=== PATIENT | male | born 1990 | race Caucasian/White ===

== ENCOUNTER 2023-11-15 02:24 | Emergency (ER) | payer OTHER, SELFPAY ==
[2023-11-15 02:26] VITALS: BP 166/104; PULSE 75; RESP 20; TEMP 36.6; O2SAT 100; BMI 24.4
--- NOTE | 2023-11-15 02:35 | PC.NURSE ---
in room talking with patient at this time.
--- NOTE | 2023-11-15 02:37 | CT_ITS ---
PROCEDURE INFORMATION: Exam: CT Abdomen And Pelvis With Contrast Exam date and time: 11/15/2023 3:05 AM Age: 33 years old Clinical indication: Abdominal pain; Localized; Right lower quadrant (rlq); Prior surgery; Surgery date: 6+ months; Surgery type: Appendix; Additional info: Rlq pain TECHNIQUE: Imaging protocol: Computed tomography of the abdomen and pelvis with contrast. Radiation optimization: All CT scans at this facility use at least one of these dose optimization techniques: automated exposure control; mA and/or kV adjustment per patient size (includes targeted exams where dose is matched to clinical indication); or iterative reconstruction. Contrast material: ISOVUE; Contrast volume: 75 ml; Contrast route: IV; COMPARISON: No relevant prior studies available. FINDINGS: Lungs: Lung bases are clear as visualized. Heart: Base of heart is unremarkable as visualized. Liver: Normal. No mass. Gallbladder and bile ducts: Normal. No calcified stones. No ductal dilation. Pancreas: Normal. No ductal dilation. Spleen: Normal. No splenomegaly. Adrenal glands: Normal. No mass. Kidneys and ureters: There is slight decrease in cortical enhancement of the right kidney diffusely. Right kidney additionally demonstrates moderate hydronephrosis. The right renal pelvis is dilated. There is distal [id number] ureterectasis with surrounding inflammatory change to the level of the ureterovesicular junction. Just proximal to the right ureterovesicular junction there is a 4 mm calcified nephroliths. Right kidney additionally demonstrates a punctate nonobstructive nephrolith in the anterior collecting system of the lower renal pole. Left kidney and urinary collecting system is unremarkable. Stomach and bowel: No obstruction. No mass. Appendix: Surgical clips in the right lower quadrant approximating the cecum suggesting appendectomy. Intraperitoneal space: Unremarkable. No free air. No significant fluid collection. Vasculature: Unremarkable. No abdominal aortic aneurysm. Lymph nodes: Unremarkable. No enlarged lymph nodes. Urinary bladder: Decompressed. Reproductive: Unremarkable as visualized. Bones/joints: Unremarkable. No acute fracture. Soft tissues: Unremarkable. IMPRESSION: Distal right calcified obstructive nephrolith just proximal to the right ureterovesicular junction. Moderate upstream ureterectasis, moderate hydronephrosis, slight global decrease in cortical enhancement of the right kidney.
--- NOTE | 2023-11-15 02:40 | HMH.EDGENADL ---
Discharge Plan Disposition Patient Disposition: Home, Self-Care Condition: Good Prescriptions Prescriptions: New oxycodone 5 mg tablet 5 mg PO Q6H PRN (Reason: pain) 2 Days Qty: 8 0RF ondansetron 4 mg tablet,disintegrating 4 mg PO Q8H PRN (Reason: nausea and vomiting) 4 Days Qty: 14 0RF tamsulosin 0.4 mg capsule 0.4 mg PO DAILY Qty: 10 0RF Referrals Follow up/Referrals: Provider,Referral, MD [Primary Care Provider] - See instructions Activity Restrictions/Add. Instructions Additional Instructions/Restrictions: If your symptoms do not improve, follow-up with urologist in 7 to 10 days. If they worsen return to the emergency department. Clinical Impressions Clinical Impression: Right nephrolithiasis Instructions Patient Instructions: DI for Kidney Stones Discharge ED Provider: Ximena Kramer General Adult HPI General Chief complaint: Abdominal Pain Stated complaint: Severe abdominal pain, vomiting, constipation Time Seen by Provider: 11/15/23 02:30 Mode of Arrival: Ambulatory Source of Information: Patient Limitations: No Limitations Description of Symptoms (Recalled from ER Triage Doc. by RN): abd pain suddenly started at 0100 in RLQ; sweating, N/V, shaky, dizzy; has had appendix removed History of Present Illness HPI narrative: 33-year-old male with previous medical history of appendectomy presents with 1 hour of severe right lower quadrant pain. Patient awoke from sleep at 1 AM with severe right lower quadrant pain. He has had 2 episodes of emesis. No stool since pain began but he had 3 normal bowel movements yesterday and has been urinating normally, no dysuria or hematuria. No known fevers. Related Data Previous Rx's Medication Instructions Recorded ondansetron 4 mg disintegrating 4 mg PO Q8H PRN nausea and 11/15/23 tablet vomiting 4 days #14 tabs oxycodone 5 mg tablet 5 mg PO Q6H PRN pain 2 days #8 tabs 11/15/23 tamsulosin 0.4 mg capsule 0.4 mg PO DAILY #10 caps 11/15/23 Allergies Allergy/AdvReac Type Severity Reaction Status Date / Time No Known Allergies [facility]23 02[facility] Disclaimer: The information contained in this section may have been updated after the patient was seen, as this information can be updated by other users. Social History Smoking Status: Former smoker alcohol intake: former current occupational status: other Travel in the last 8 weeks: None ROS Obtained: Yes All systems reviewed & no additional complaints except as documented Physical Exam General General appearance: alert Comment: No acute respiratory distress but holding right lower quadrant in severe pain. Head Head exam: atraumatic, normocephalic and normal inspection Eye Eye exam: Present normal appearance, PERRL and EOMI ENT ENT exam: Present normal exam, normal oropharynx, mucous membranes moist, TM's normal bilaterally and normal external ear exam Neck Neck exam: Present normal inspection, full ROM and trachea midline; Absent meningismus or lymphadenopathy Chest Chest inspection: Present normal inspection and symmetric chest wall rise; Absent tenderness Respiratory Respiratory exam: Present normal lung sounds bilaterally; Absent respiratory distress Cardiovascular Cardiovascular exam: Present regular rate and normal rhythm; Absent JVD Abdominal Exam Abdominal exam: Present soft and normal bowel sounds; Absent distention, tenderness or guarding Abdominal tenderness: Absent RUQ, RLQ, LUQ, LLQ, epigastrium or suprapubic Extremities Exam Extremities exam: Present normal inspection, full ROM and normal capillary refill; Absent calf tenderness Back Exam Back exam: Present normal inspection; Absent tenderness, CVA tenderness (R) or CVA tenderness (L) Neurological Exam Neurological exam: Present alert and oriented X3 Psychiatric Psychiatric exam: Present normal affect and normal mood Skin Skin exam: Present warm, dry, intact and normal color Lymphatic Lymphatic Findings: no adenopathy Medical Decision Making Hiram Inquiry Pt receiving controlled substance: No Hiram was queried for this patient: No Vital Signs: 11/15/23 02:26 11/15/23 03:30 11/15/23 03:29 Temperature 98 F Temperature Source Oral Pulse Rate 77 63 Pulse Rate [Right Brachial] 75 Respiratory Rate 20 16 Blood Pressure 108/74 L 108/74 L Blood Pressure [Right Arm] 166/104 H Blood Pressure Mean [Right Arm] 124 Blood Pressure Source [Right Arm] Automatic Cuff Blood Pressure Position [Right Arm] Supine 02 Sat by Pulse Oximetry 100 97 100 Oxygen Delivery Method Room Air Room Air Lab Data Lab Results 11/15/23 02:30: WBC 7.0, RBC 5.22, Hgb 17.2, Hct 51.9, MCV 99.5 H, MCH 33.0 H, MCHC 33.2, RDW 13.4, Plt Count 202, MPV 9.6, Neut % (Auto) 50.0, Lymph % (Auto) 39.0, [place] % (Auto) 8.0, Eos % (Auto) 1.4, Baso % (Auto) 1.7, Neut # (Auto) 3.5, Lymph # (Auto) 2.7, [place] # (Auto) 0.6, Eos # (Auto) 0.1, Baso # (Auto) 0.1, Sodium 140, Potassium 3.5, Chloride 104, Carbon Dioxide 23, Anion Gap 16.5 H, BUN 14, Creatinine 0.90, Estimated Creat Clear 134, Estimated GFR 97, Est GFR ( Amer) 117, Glucose 192 H, Lactate 4.7 H, Calcium 9.3, Total Bilirubin 1.5 H, AST 35, ALT 39, Alkaline Phosphatase 67, Total Protein 7.1, Albumin 4.5, Globulin 2.6, Albumin/Globulin Ratio 1.7, Lipase 166 11/15/23 05:45: Urine Color Yellow, Urine Appearance Slightly cloudy, Urine pH 6.0, Ur Specific [place] 1.010, Urine Protein Negative, Urine Glucose (UA) Negative, Urine Ketones Negative, Urine Blood 3+, Urine Nitrate Negative, Urine Bilirubin Negative, Urine Urobilinogen 0.2, Ur Leukocyte Esterase Negative, Urine RBC 5-10, Urine WBC None, Ur Squamous Epith Cells Occasional, Urine Bacteria Trace 11/15/23 02:30 11/15/23 02:30 Orders (Tests/Meds): ED MEDICATIONS Discontinued Medications Generic Name Dose Route Start Last Admin Trade Name Rileyq PRN Reason Stop Dose Admin Acetaminophen 1,000 mg 11/15/23 02:37 11/15/23 02:44 Acetaminophen 1,000mg/100ml Vial IV 11/15/23 02:38 1,000 mg ONCE ONE Administration Hydromorphone HCl 0.5 mg 11/15/23 03:17 11/15/23 03:25 Hydromorphone 2mg/Ml Syringe IV 11/15/23 03:18 0.5 mg ONCE ONE Administration Lactated Ringer's 1,000 mls @ 999 mls/hr 11/15/23 02:37 11/15/23 02:45 Lactated Ringer's 1000 Ml Bag IV 11/15/23 03:37 999 mls/hr .Q1H1M ONE Administration Iopamidol 75 ml 11/15/23 03:15 11/15/23 03:16 Iopamidol-370 (76%);100ml Bottle IV 11/15/23 03:16 75 ml ONCE ONE Administration Ketorolac Tromethamine 15 mg 11/15/23 02:37 11/15/23 02:44 Ketorolac 30mg/Ml Vial IV 11/15/23 02:38 15 mg ONCE ONE Administration Morphine Sulfate 4 mg 11/15/23 02:37 11/15/23 02:45 Morphine 4mg/Ml Syringe IV 11/15/23 02:38 4 mg ONCE ONE Administration Ondansetron HCl 4 mg 11/15/23 02:37 11/15/23 02:44 Ondansetron 4mg/2ml Vial IV 11/15/23 02:38 4 mg ONCE ONE Administration Ondansetron HCl 4 mg 11/15/23 03:17 11/15/23 03:25 Ondansetron 4mg/2ml Vial IV 11/15/23 03:18 4 mg ONCE ONE Administration Sodium Chloride 10 ml 11/15/23 03:15 11/15/23 03:16 Sodium Chloride 0.9% 10ml Syr (Rad Only) IV 11/15/23 03:16 10 ml ONCE ONE Administration ORDERS Category Date Time Status CT abdomen pelvis w con Stat Cat Scan 11/15/23 02:37 Completed Complete Blood Count Auto Diff Stat Lab 11/15/23 02:30 Completed Comprehensive Metabolic Panel Stat Lab 11/15/23 02:30 Completed Lactic Acid Follow Up (RFLX 1) Stat Lab 11/15/23 07:06 Received Lactic Acid Stat Lab 11/15/23 02:30 Completed Lipase Stat Lab 11/15/23 02:30 Completed Urinalysis and Microscopic Stat Lab 11/15/23 05:45 Completed Medical Decision Narrative: Considered multiple causes of patient's acute onset right lower quadrant pain and vomiting including appendicitis though patient has a history of appendectomy, bowel obstruction, nephrolithiasis, pyelonephritis, colitis, mesenteric ischemia, gastroenteritis, cholelithiasis, cholecystitis, among others. For this reason obtained CBC, CMP, lactate, urinalysis, CT abdomen pelvis with IV contrast. For patient's comfort provided acetaminophen, ketorolac, morphine, ondansetron, and LR. Social determinants of health did not complicate care. Independently reviewed and interpreted laboratory workup which was significant for lactic acidosis with lactate of 4.5 and mild anion gap elevation to 16.5. No leukocytosis or significant abnormalities of CMP. No MIRIAM. Independently reviewed and interpreted CT abdomen pelvis with IV contrast which demonstrated 3 mm obstructing stone at right ureterovesicular junction. On reassessment patient had partial improvement in his pain and nausea. Urinalysis showed no UTI. I discussed with patient that at this time his symptoms are most consistent with right-sided obstructive nephrolithiasis. Discussed medication management and recommended follow-up with urology. Provided return precautions and discharged while stable with dramatic improvement in his symptoms. Patient tolerated oral liquids in the emergency department. Critical Care Critical Care Time Critical Care Time: No
[2023-11-15] MEDS: ONDANSETRON 4MG/2ML VIAL 4 MG IV ×2 (02:44→03:25)
[2023-11-15] MEDS: KETOROLAC 30MG/ML VIAL 15 MG IV (02:44)
[2023-11-15] MEDS: ACETAMINOPHEN 1,000MG/100ML VIAL 1000 MG IV (02:44)
[2023-11-15] MEDS: MORPHINE 4MG/ML SYRINGE 4 MG IV (02:45)
[2023-11-15] MEDS: LACTATED RINGERS 1000ML 1,000 ML 999 ML IV (02:45)
[2023-11-15 02:50] LABS: Basophils # 0.1 K/mm3 (0-0.2); Basophils % 1.7 % (0.1-2.0); Eosinophils # 0.1 K/mm3 (0.0-0.4); Eosinophils % 1.4 % (0.1-12.0); Hematocrit 51.9 % (42.0-52.0); Hemoglobin 17.2 g/dL (14.1-18.0); Lymphocytes # 2.7 K/mm3 (0.7-4.5); Mean Corpuscular HGB Conc 33.2 g/dL (31.8-35.4); Mean Corpuscular Volume 99.5 fl (80-94); Mean Platelet Volume 9.6 fl (7.4-10.4); Monocytes # 0.6 K/mm3 (0.1-1.0); Neutrophils # 3.5 K/mm3 (1.8-7.8); Platelet Count 202 K/mm3 (142-424); Red Blood Count 5.22 M/mm3 (4.60-6.20); Red Cell Distribution Width 13.4 % (11.5-17.5)
[2023-11-15 02:54] LABS: Alanine Aminotransferase 39 U/L (12-78); Albumin Level 4.5 g/dl (3.5-5.0); Albumin/Globulin Ratio 1.7 (1.1-1.8); Alkaline Phosphatase 67 U/L (38-126); Anion Gap 16.5 mEq/L (5-15); Aspartate Amino Transferase 35 U/L (17-59); Bilirubin,Total 1.5 mg/dl (0.2-1.3); Blood Urea Nitrogen 14 mg/dl (9-20); Calcium 9.3 mg/dl (8.4-10.2); Carbon Dioxide 23 mmol/L (22.0-30.0); Chloride 104 mmol/L (98-107); Creatinine Clearance Estimated 134 mL/min (50-200); Estimated Glomerular Filt Rate 97 ml/min (>60); GFR (African American) 117 ML/MIN (>60); Globulin 2.6 g/dL (1.3-3.2); Glucose 192 mg/dl (74-100); Potassium 3.5 mmoL/L (3.5-5.1); Sodium 140 mmol/L (136-145); Total Protein,Serum 7.1 g/dl (6.3-8.2)
[2023-11-15 02:57] LABS: Lactic Acid 4.7 mmol/L (0.7-2.1); Lipase 166 U/L (23-300)
[2023-11-15] MEDS: IOPAMIDOL-370 (76%);100ML BOTTLE 75 ML IV (03:16)
[2023-11-15] MEDS: SODIUM CHLORIDE 0.9% 10ML SYR (RAD ONLY) 10 ML IV (03:16)
[2023-11-15] MEDS: HYDROMORPHONE 2MG/ML SYRINGE 0.5 MG IV (03:25)
[2023-11-15 03:29] VITALS: BP 108/74; PULSE 63; O2SAT 100
[2023-11-15 03:30] VITALS: BP 108/74; PULSE 77; RESP 16; O2SAT 97
[2023-11-15 05:51] LABS: Bilirubin,Urine Negative (Negative); Blood, Urine 3+ (Negative); Color,Urine YELLOW (Yellow); Glucose,Urine (UA) Negative (Negative); Ketones,Urine Negative (Negative); Leukocyte Esterase,Urine Negative (Negative); Microscopic, Urine URINE MICROSCOPIC (MICROSCOPIC); Nitrate,Urine Negative (Negative); Protein,Urine Negative (Negative); Urobilinogen,Urine 0.2 EU/dl (0.2)
[2023-11-15 05:52] LABS: Appearance,Urine Slightly Cloudy (Clear)
[2023-11-15 06:05] LABS: Bacteria,Urine Trace /lpf; Squamous Epithelial Cell,Urine Occasional #/hpf (0-5)
[2023-11-15 06:44] LABS: Reflex Lactic Add Lactic Reflex
[2023-11-15 07:22] LABS: Lactic Acid Follow Up (RFLX 1) 2.2 mmol/L (0.7-2.1)
[2023-11-15 08:21] VITALS: BP 113/80; PULSE 78; RESP 18; TEMP 36.6
[2023-11-15 09:11] LABS: Reflex Lactic (2 hrs) Add Lactic Reflex
== END 2023-11-15 08:24 | disposition home or self-care (01) ==
PROVIDERS: Emergency Provider Emergency Medicine
DX: N20.0 Calculus of kidney (principal); R10.31 Right lower quadrant pain; R11.2 Nausea with vomiting, unspecified; R42 Dizziness and giddiness; R61 Generalized hyperhidrosis; E87.20 Acidosis, unspecified; Z87.891 Personal history of nicotine dependence
CPT/HCPCS: 36415; 74177; 80053; 81001; 83605; 83690; 85025; 96361; 96374; 96375; 96376; 99285; J0131; J2405; Q9967

== ENCOUNTER 2024-06-02 09:19 | Emergency (ER) | payer OTHER, SELFPAY ==
[2024-06-02 09:53] VITALS: BP 130/78; PULSE 85; RESP 20; TEMP 36.8; O2SAT 97; BMI 25.7
--- NOTE | 2024-06-02 10:10 | ED_ITS ---
Discharge Plan Disposition Patient Disposition: Home, Self-Care Condition: Good Referrals Follow up/Referrals: Provider,Referral, MD [Primary Care Provider] - See instructions Activity Restrictions/Add. Instructions Additional Instructions/Restrictions: *Monitor Temp, Over the counter Motrin or Tylenol as directed/as needed Tylenol every 4 hours and Motrin every 6 hours (as long as your family doctor has told you that you can take it) for fever or pain. and straight to ER if unable to lower temp less than 101.0 after medication given *Warm salt water gargles may help to soothe the throat *Throat Lozenges? *Warm fluids like tea with honey may help to soothe the throat? *Sleep elevated *Humidifier/Vaporizer Follow up IMMEDIATELY for new or worsening symptoms or no Noticeable improvement over the next 48-72 hours. 911 for difficulty breathing or swallowing You were tested for today for COVID19 your test result should be back in the next 24 hours, you may check your results on the [facility] Clinical Impressions Clinical Impression: Viral syndrome Stand Alone Forms Stand Alone Forms: Work/School Release Instructions Patient Instructions: DI for Viral Syndrome, DI for COVID-19 (Suspected or Confirmed ) Print Language Print Language: Divehi Discharge ED Provider: Aubrie Beaver [facility] [place] General Stated complaint: body aches, headaches, nausea, weakness, Cov+ home Mode of Arrival: Ambulatory Source of Information: Patient Time Seen by Provider: 06/02/24 10:10 Description of Symptoms (Recalled from Triage Doc. by RN): WANTS COVID TEST HEENT Symptoms (Recalled from RN notes): No Resp Symptoms (Recalled from RN notes): Yes Skin Symptoms (Recalled from RN notes): No MS Symptoms (Recalled from RN notes): No Functional Status (Recalled from RN notes): WNL History of Present Illness Provider Complaint: Patient has been having nasal congestion, body aches, chills and headache just tested positive for COVID and he wanted to get tested Related Data Allergies Allergy/AdvReac Type Severity Reaction Status Date / Time No Known Allergies Allergy Verified 11/15/23 02:40 Worker's Comp Is this a Worker's Comp case?: No [facility] Disclaimer: The information contained in this section may have been updated after the patient was seen, as this information can be updated by other users. Social History (Updated 11/15/23 @ 07:23 by Ximena Kramer MD) Smoking Status: Former smoker alcohol intake: former current occupational status: other Travel in the last 8 weeks: None ROS Obtained: Yes All systems reviewed & no additional complaints except as documented and Yes Systems reviewed as appropriate & no additional complaints except as documented Constitutional Constitutional: Reports system reviewed and no additional complaints, except as documented, Reports as per HPI, Reports body ache, Reports chills, Reports fever(s) and Reports headache(s) ENT Ears, Nose, Mouth, and Throat: Reports system reviewed and no additional complaints, except as documented, Reports as per HPI, Reports headache(s), Reports nasal congestion and Reports nasal discharge Cardiovascular Cardiovascular: Reports system reviewed and no additional complaints, except as documented and Reports as per HPI Respiratory Respiratory: Reports system reviewed and no additional complaints, except as documented and Reports as per HPI Neurologic Neurologic: Reports headache(s) Physical Exam General General appearance: alert and in no apparent distress ENT ENT exam: Present normal exam, normal oropharynx, mucous membranes moist and TM's normal bilaterally Respiratory Respiratory exam: Present normal lung sounds bilaterally; Absent respiratory distress or wheezes Cardiovascular Cardiovascular exam: Present regular rate, normal rhythm and normal heart sounds Abdominal Exam Abdominal exam: Present soft and normal bowel sounds; Absent distention or tenderness Neurological Exam Neurological exam: Present alert, oriented X3 and normal gait Medical Decision Making Medical Records Screening: Per USPSTF and CDC recommendations, given the prevalence of disease in our region, it is our hospital?s policy to screen for HIV and viral Hepatitis for all patients aged 18 and over and those with ongoing risk factors. Hiram Inquiry Pt receiving controlled substance: No Hiram was queried for this patient: No Vital Signs: 06/02/24 09:53 Temperature 98.2 F Temperature Source Oral Pulse Rate [Left Brachial] 85 Respiratory Rate 20 Blood Pressure [Left Arm] 130/78 Blood Pressure Mean [Left Arm] 95 02 Sat by Pulse Oximetry 97 Orders (Tests/Meds): ORDERS Category Date Time Status Covid-19 Nasal PCR ([facility]) Routine Lab 06/02/24 09:45 Received
[2024-06-02 10:17] VITALS: BP 130/78; PULSE 85; RESP 20; TEMP 36.8
== END 2024-06-02 10:18 | disposition home or self-care (01) ==
PROVIDERS: Emergency Provider Nurse Practitioner
DX: U07.1 COVID-19 (principal); R51.9 Headache, unspecified; R53.1 Weakness
CPT/HCPCS: 87635; 99203; 99212; G0463

== ENCOUNTER 2024-08-27 15:42 | Outpatient (CLI) | payer OTHER, SELFPAY ==
[2024-08-27 17:18] LABS: Erythrocyte Sedimentation Rate 2 mm/hr (0-15)
[2024-08-27 17:30] LABS: Albumin Level 4.7 g/dl (3.5-5.0); Chloride 106 mmol/L (98-107); Potassium 4.2 mmoL/L (3.5-5.1); Sodium 140 mmol/L (136-145)
[2024-08-27 17:33] LABS: Alanine Aminotransferase 44 U/L (12-78); Albumin/Globulin Ratio 1.7 (1.1-1.8); Alkaline Phosphatase 64 U/L (38-126); Anion Gap 12.2 mEq/L (5-15); Aspartate Amino Transferase 44 U/L (17-59); Bilirubin,Total 1.8 mg/dl (0.2-1.3); Blood Urea Nitrogen 12 mg/dl (9-20); Carbon Dioxide 26 mmol/L (22.0-30.0); Estimated Glomerular Filt Rate 96 ml/min (>60); GFR (African American) 116 ML/MIN (>60); Globulin 2.7 g/dL (1.3-3.2); Total Protein,Serum 7.4 g/dl (6.3-8.2)
[2024-08-27 17:34] LABS: Calcium 9.3 mg/dl (8.4-10.2); Glucose 97 mg/dl (74-100)
[2024-08-27 18:04] LABS: Thyroid Stimulating Hormone 1.66 uIU/mL (0.465-4.68)
[2024-08-27 18:08] LABS: Ferritin 509 ng/ml (17.9-464)
[2024-08-27 20:54] LABS: Uric Acid 7.8 mg/dl (3.5-8.5)
[2024-08-27 22:57] LABS: Vitamin B12 505 pg/mL (239-931)
[2024-08-29 08:17] LABS: RA Latex Turbid. <10.0 IU/mL (<14.0)
[2024-08-31 13:55] LABS: Antinuclear Antibodies, IFA POSITIVE
== END 2024-08-27 23:59 | disposition home or self-care (01) ==
LOC: LAB.DROPOF 08-30 08:45
PROVIDERS: PCP Nurse Practitioner Family; Visit Provider Nurse Practitioner Family
DX: R20.0 Anesthesia of skin (principal); R20.2 Paresthesia of skin; M25.50 Pain in unspecified joint; R17 Unspecified jaundice
CPT/HCPCS: 80053; 82607; 82728; 84443; 84550; 85651; 86038; 86431

== ENCOUNTER 2024-09-06 09:27 | Outpatient (CLI) | payer OTHER, SELFPAY ==
--- NOTE | 2024-09-06 09:28 | US_ITS ---
FINAL REPORT TECHNIQUE: Multiple transverse and longitudinal images CLINICAL HISTORY: Elevated bilirubin COMPARISON: None FINDINGS: The gallbladder shows no wall thickening, distention or stone disease. No biliary ductal dilatation or biliary obstruction is appreciated. No fluid collections are seen. There is fatty infiltration of the liver.. Limited portions of the right kidney are unremarkable. IMPRESSION: 1. Fatty liver. 2. No evidence of acute gallbladder disease or biliary obstruction. Reviewed, Interpreted and Dictated by Kelley Chiang MD Transcribed by Zulma De Leon Authenticated and [facility]
== END 2024-09-06 23:59 | disposition home or self-care (01) ==
LOC: RAD 09:28
PROVIDERS: PCP Nurse Practitioner Family; Visit Provider Nurse Practitioner Family
DX: R17 Unspecified jaundice (principal)
CPT/HCPCS: 76705

== ENCOUNTER 2024-09-22 14:31 | Outpatient (CLI) | payer OTHER, SELFPAY ==
--- NOTE | 2024-09-22 14:37 | MR_ITS ---
FINAL REPORT CLINICAL HISTORY: Right upper extremity numbness and tingling COMPARISON: None FINDINGS: Multi planar MR imaging of the right shoulder was performed. The supraspinatus tendon appears intact. There is trace fluid in the subacromial/subdeltoid bursa. The anterior and posterior glenoid ronny appear intact. The biceps tendon appears intact. There is mild acromioclavicular hypertrophic change. There is a cystic focus in the spinoglenoid notch, measuring 1.5 cm in size, that may represent a paralabral cyst. No secondary signs of denervation are identified. And no abnormal signal is noted in the rotator cuff musculature. IMPRESSION: Cystic focus in the spinal glenoid notch, as described, that may represent a paralabral cyst. No secondary signs of denervation are identified. Mild acromioclavicular hypertrophic change. Reviewed, Interpreted and Dictated by Ion Medina MD Transcribed by Jessica Mayes Authenticated and . [facility]
--- NOTE | 2024-09-22 16:00 | XR_ITS ---
FINAL REPORT CLINICAL HISTORY: Right upper extremity numbness and tingling COMPARISON: None FINDINGS: CERVICAL SPINE 5 views were obtained. There is no acute fracture or malalignment. There is a mild reversal the cervical lordosis centered at the C4 level. There is minimal anterior osteophyte formation at C4-5 and C5-6. IMPRESSION: Minimal degenerative changes without acute process. Reviewed, Interpreted and Dictated by Ion Medina MD Transcribed by Samara Mack Authenticated and [facility]
--- NOTE | 2024-09-22 16:00 | XR_ITS ---
FINAL REPORT CLINICAL HISTORY: right upper extremity numbness and tingling COMPARISON: None FINDINGS: RIGHT SHOULDER Three views demonstrate no acute fracture or dislocation. The acromion is slightly inferiorly displaced relative to the distal clavicle. This may be related to ligamentous instability. The glenohumeral joint is intact. The soft tissues are unremarkable. IMPRESSION: Possible ligamentous instability. Reviewed, Interpreted and Dictated by Ion Medina MD Transcribed by Samara Mack Authenticated and . [facility]
== END 2024-09-22 23:59 | disposition home or self-care (01) ==
LOC: RAD 14:32
PROVIDERS: PCP Nurse Practitioner Family; Visit Provider Nurse Practitioner Family
DX: M25.511 Pain in right shoulder (principal); R20.0 Anesthesia of skin; R20.2 Paresthesia of skin
CPT/HCPCS: 72050; 73030; 73221

== ENCOUNTER 2024-11-29 12:16 | Outpatient (CLI) | payer OTHER, SELFPAY ==
[2024-11-29 12:47] LABS: Basophils % 0.3 % (0.1-2.0); Eosinophils # 0.1 K/mm3 (0.0-0.4); Eosinophils % 1.8 % (0.1-12.0); Hematocrit 50.9 % (42.0-52.0); Lymphocytes # 1.5 K/mm3 (0.7-4.5); Lymphocytes % 24.5 % (10-50); Mean Corpuscular HGB Conc 35.8 g/dL (31.8-35.4); Mean Corpuscular Hemoglobin 32.9 pg (27.0-31.2); Mean Corpuscular Volume 91.9 fl (80-94); Mean Platelet Volume 12.2 fl (7.4-10.4); Monocytes # 0.6 K/mm3 (0.1-1.0); Monocytes % 9.6 % (1.7-9.3); Neutrophils # 3.8 K/mm3 (1.8-7.8); Neutrophils % 63.5 % (37.0-80.0); Platelet Count 191 K/mm3 (142-424); Red Blood Count 5.54 M/mm3 (4.60-6.20); Red Cell Distribution Width 12.3 % (11.5-17.5)
[2024-11-29 13:02] LABS: Hemoglobin 18.3 g/dL (14.1-18.0)
[2024-11-29 13:14] LABS: Albumin Level 4.9 g/dl (3.5-5.0)
[2024-11-29 13:17] LABS: Alanine Aminotransferase 34 U/L (12-78); Alkaline Phosphatase 93 U/L (38-126); Aspartate Amino Transferase 34 U/L (17-59); Bilirubin,Direct 0.3 mg/dl (0.0-0.4); Bilirubin,Total 1.3 mg/dl (0.2-1.3); Total Protein,Serum 7.5 g/dl (6.3-8.2)
[2024-11-29 13:52] LABS: Ferritin 378 ng/ml (17.9-464)
[2024-11-29 13:59] LABS: HIV Combo NEGATIVE (Negative)
[2024-11-29 15:41] LABS: Hepatitis C Ab Qual. W/ RFX NEGATIVE (Negative)
== END 2024-11-29 23:59 | disposition home or self-care (01) ==
LOC: LAB.DROPOF 12:17
PROVIDERS: PCP Nurse Practitioner Family; Visit Provider Nurse Practitioner Family
DX: Z11.4 Encounter for screening for human immunodeficiency virus [HIV] (principal); R17 Unspecified jaundice; R79.89 Other specified abnormal findings of blood chemistry
CPT/HCPCS: 80076; 82728; 85025; 86803; 87389

== ENCOUNTER 2025-05-06 21:41 | Emergency (ER) | payer OTHER, SELFPAY ==
[2025-05-06 22:00] VITALS: BP 140/77; PULSE 60; RESP 20; TEMP 36.6; O2SAT 100; BMI 26.6
--- OUTSIDE RECORDS SUMMARY | 2025-05-06 22:10 | XMS_ITS | Clinical Summary ---
[facility] Address [address] [place] [address] Care Team Providers Care Artifacts Conservator Name Role Phone Edith Chery Primary Care Provider [phone] Allergies No known active allergies Medications No known medications Active Problems Problem Noted Date Diagnosed Date Migraines 01/05/2021 Family History Medical History Relation Name Comments Diabetes Father No Known Problems Mother Colon cancer Neg Hx Colon polyps Neg Hx Relation Name Status Comments Father Alive Mother She was killed a few years ago Social History Tobacco Use Types Packs/Day Years Used Date Smoking Tobacco: Never Smokeless Tobacco: Never Alcohol Use Standard Drinks/Week Comments Not Currently 0 (1 standard drink = 0.6 oz pure alcohol) Quit 07/17/2020-Socially drank Abuse Screen Answer Date Recorded Unsafe at Home or Work/School Not on file Feels Threatened by Someone? Not on file 05/2023 Does Anyone Keep You from Co ntacting Others or Doint Things Outside the Home? Not on file 06/23/2023 Physical Sign of Abuse Present Not on file 1 Housing Stability Answer Date Recorded Current Living Arrangements Not on file 05/2023 Potentially Unsafe Housing Conditions Not on marilyn e 06/23/2023 Family and Community Support Answer Victor M e Recorded Help with Day-to-Day Activities Not on file 06/23/2023 Lonely or Isolated Not on file 06/23/2023 Employment Answer Date Recorded Do you want help finding or keeping work or a malcom b? Not on file 06/23/2023 Disabilities Answer Date Recorded Concentrating, Remembering, or Making Decisions Difficulty Not on file 06/23/2023 Doing Errands Independently Difficulty Not on fi le 06/23/2023 Education Answer Date Recorded Help with school or training? Not on file Preferred Language Not on file 06/23/2023 Sex and Gender Information Value Date Recorded Sex Assigned at Not on file Legal Sex Male 10:44 AM EDT Gender Identity Not on file Sexual Orientation Not on file Last Filed Vital Signs Vital Sign Reading Time Taken Comments Blood Pressure 117/76 01/25/2021 10:26 AM EDT Pulse 61 01/25/2021 10:26 AM EDT Temperature 36.6 C (97.9 F) 01/25/2021 10:26 AM EDT Respiratory Rate 16 01/05/2021 3:30 PM EDT Oxygen Saturation 98% 01/05/2021 3:30 PM EDT Inhaled Oxygen Concentration - - Weight 76.6 kg (168 lb 12.8 oz) 021 10:26 AM EDT Height 182.9 cm (6' 0.01 ) 01/25/2021 1 0:26 AM EDT Body Mass Index 22.89 01/25/2021 10:26 AM EDT Plan of Treatment Health Maintenance Due Date Last Done Comments TDAP/TD VACCINES (1 - Tdap) 2008 ANNUAL PHYSICAL 01/05/2021 COVID-19 Vaccine (2023-2 5 season) 2024 INFLUENZA VACCINE 06/15/2025 HEPATITIS C SCREENING Completed 01/05/2021 Pneumococcal Vaccine 0-49 Aged Out No longer eligible based on patient's age to complete this topic Procedures Procedure Name Priority Date/Time Associated Diagnosis Comments HEPATITIS C ANTIBODY Routine 01/05/2021 4:27 PM EDT Need for hepatitis C screening test from Last 3 Months or Most Recently Relevant to Health Maintenance Results * Hepatitis C Antibody (01/05/2021 4:27 PM EDT) Hep C Virus Ab <0.1 0.0 - 0.9 s/co ratio [facility] Comment: Negative: < 0.8 Indeterminate: 0.8 - 0.9 Positive: > 0.9 The CDC recommends that a positive HCV antibody result be followed up with a HCV Nucleic Acid Amplification test (040809). Blood 01/05/2021 4:27 PM EDT 01/05/2021 Narrative [facility] ([facility]) - 01/06/2021 8:11 AM EDT Performed at: 01 - [facility] [address] [place], [place] [id number] [employer]: Chucky Cotton PhD, Phone: [phone] Patient Fasting: N us Edith Chery DO LAB BLOOD ORDERABLES Final Result [facility] [address] [place] [address], [facility] [address] [place] [address], from Last 3 Months or Most Recently Relevant to Health Maintenance Insurance Care Teams Artifacts Conservator Relationship Specialty Start Date End Date Edith Chery [place] [address] PCP - General Family Medicine 01/05/21
[2025-05-06 22:28] LABS: Microscopic, Urine URINE MICROSCOPIC (MICROSCOPIC)
[2025-05-06 22:31] LABS: Bilirubin,Urine Negative (Negative); Color,Urine YELLOW (Yellow); Glucose,Urine (UA) Negative (Negative); Ketones,Urine Negative (Negative); Leukocyte Esterase,Urine Negative (Negative); PH,Urine 6.0 (5.0-8.5); Protein,Urine Negative (Negative); Specific Gravity, Urine >= 1.030 (1.005-1.030); Urobilinogen,Urine 0.2 EU/dl (0.2)
[2025-05-06 22:48] LABS: WBC,Urine Occasional #/hpf (0-3)
[2025-05-06 22:49] LABS: Bacteria,Urine Trace /lpf
[2025-05-06 23:18] LABS: Hematocrit 44.3 % (42.0-52.0); Hemoglobin 16.4 g/dL (14.1-18.0); Immature Granulocytes % 0.3 %; Mean Corpuscular HGB Conc 37.0 g/dL (31.8-35.4); Mean Corpuscular Hemoglobin 33.3 pg (27.0-31.2); Mean Corpuscular Volume 90.0 fl (80-94); Nucleated Red Blood Cells % 0 %; Platelet Count 190 K/mm3 (142-424); Red Blood Count 4.92 M/mm3 (4.60-6.20); Red Cell Distribution Width-SD 41.7 fL; White Blood Count 8.8 K/mm3 (4.8-10.8)
--- NOTE | 2025-05-06 23:18 | CT_ITS ---
PROCEDURE INFORMATION: Exam: CT Abdomen Without Contrast Exam date and time: 05/07/2025 12:02 AM Age: 35 years old Clinical indication: Abdominal pain; Additional info: Concern for left kidney stone TECHNIQUE: Imaging protocol: Computed tomography of the abdomen without contrast. Radiation optimization: All CT scans at this facility use at least one of these dose optimization techniques: automated exposure control; mA and/or kV adjustment per patient size (includes targeted exams where dose is matched to clinical indication); or iterative reconstruction. COMPARISON: CT ABDOMEN PELVIS W CON 11/15/2023 3:05 AM FINDINGS: Liver: Diffuse decreased CT attenuation throughout the liver. Gallbladder and biliary ducts: Normal. No calcified stones. No ductal dilation. Pancreas: Normal. No ductal dilation. Spleen: Normal. No splenomegaly. Adrenal glands: Normal. No mass. Kidneys: Mild left hydronephrosis. Nonobstructing calyceal calculus inferior pole right kidney about 2 mm Stomach and bowel: Visualized stomach and bowel are unremarkable. No obstruction. No mucosal thickening. Appendix: Calcified appendix Intraperitoneal space: Unremarkable. No free air. No significant fluid collection. Vasculature: Unremarkable. No abdominal aortic aneurysm. Lymph nodes: Unremarkable. No enlarged lymph nodes. Reproductive: Left UVJ calculus measures 1.5 mm Bones/joints: Unremarkable. No acute fracture. No dislocation. Soft tissues: Unremarkable. IMPRESSION: 1. Trace left hydronephrosis caused by 1.5 mm left UVJ calculus. 2. Hepatic steatosis
[2025-05-06] MEDS: MORPHINE 4MG/ML SYRINGE 4 MG IV (23:19)
[2025-05-06] MEDS: ONDANSETRON 4MG/2ML VIAL 4 MG IV (23:19)
[2025-05-06 23:28] LABS: Albumin Level 4.5 g/dl (3.5-5.0)
[2025-05-06 23:29] LABS: Chloride 106 mmol/L (98-107); Potassium 3.9 mmoL/L (3.5-5.1); Sodium 139 mmol/L (136-145)
[2025-05-06 23:31] LABS: Alanine Aminotransferase 41 U/L (12-78); Alkaline Phosphatase 73 U/L (38-126); Anion Gap 11.9 mEq/L (5-15); Aspartate Amino Transferase 44 U/L (17-59); Bilirubin,Total 1.8 mg/dl (0.2-1.3); Blood Urea Nitrogen 12 mg/dl (9-20); Carbon Dioxide 25 mmol/L (22.0-30.0); Creatinine Clearance Estimated 162 mL/min (50-200); Creatinine,Serum 0.80 mg/dl (0.66-1.25); Estimated Glomerular Filt Rate 110 ml/min (>60); GFR (African American) 133 ML/MIN (>60)
[2025-05-06 23:32] LABS: Albumin/Globulin Ratio 1.6 (1.1-1.8); Calcium 9.2 mg/dl (8.4-10.2); Globulin 2.8 g/dL (1.3-3.2); Glucose 167 mg/dl (74-100); Lipase 102 U/L (23-300); Total Protein,Serum 7.3 g/dl (6.3-8.2)
--- NOTE | 2025-05-06 23:35 | PC.NURSE ---
Resumed care form LISSET Witt
--- NOTE | 2025-05-07 00:48 | [facility].EDGENADL ---
Discharge Plan Disposition Patient Disposition: Home, Self-Care Condition: Good Prescriptions Prescriptions: New tamsulosin 0.4 mg capsule 0.4 mg PO Q24H Qty: 14 0RF ketorolac 10 mg tablet 10 mg PO Q8H PRN (Reason: pain) 5 Days Qty: 15 0RF hydrocodone-acetaminophen 5-325 mg tablet 1 tab PO Q6H PRN (Reason: pain (scale score 7-10)) Qty: 8 0RF No Action triamcinolone acetonide 0.1 % cream 1 applic topical TID 10 Days Qty: 80 1RF methylprednisolone [Medrol ([place])] 4 mg tablets,dose pack See Rx Instructions PO PER PKG DIR 6 Days Qty: 21 0RF Rx Instructions: PO PER PKG DIR for 6 days Referrals Follow up/Referrals: Marcela Del Valle APRN [Primary Care Provider, Medical] - See instructions Activity Restrictions/Add. Instructions Additional Instructions/Restrictions: Please pickling drum operator ketorolac, tamsulosin, and hydrocodone from the pharmacy in the morning. If you have any new or worsening symptoms including fever or chills please return to the emergency department Clinical Impressions Clinical Impression: Hydronephrosis of left kidney, Calculus of distal left ureter Print Language Print Language: Sudanese Discharge ED Provider: Addi Maldonado General Adult HPI <Addi Maldonado DO - Last Filed: 05/07/25 01:14> General Chief complaint: PAIN Stated complaint: Left flank pain wity nausea Time Seen by Provider: 05/06/25 22:15 Mode of Arrival: Ambulatory Source of Information: Patient Description of Symptoms (Recalled from ER Triage Doc. by RN): patient presents to the ED for L flank pain. Patient has a history of kidney stones. patient rates it 02/22 currently. History of Present Illness HPI narrative: This is a 35-year-old male patient, with past medical history of kidney stones, who is presenting to the emergency department today for evaluation of left flank pain. Patient states that he has had this pain throughout the duration of the day and it has worsened this evening. He states that the pain is radiating from the left flank and around to the left lower quadrant. He has not had any dysuria, hematuria, or increased urinary frequency. No fevers. He states that this does feel remarkably similar to his last kidney stone. Related Data Previous Rx's ?Medication ?Instructions ?Recorded methylprednisolone 4 mg tablets in See Rx Instructions PO PER PKG DIR 03/21/25 a dose pack (Medrol ([place])) 6 days #21 tabs triamcinolone acetonide 0.1 % 1 applic topical TID 10 days #80 03/21/25 topical cream grams hydrocodone 5 mg-acetaminophen 325 1 tab PO Q6H PRN pain (scale score 05/07/25 mg tablet 7-10) #8 tabs ketorolac 10 mg tablet 10 mg PO Q8H PRN pain 5 days #15 05/07/25 tabs tamsulosin 0.4 mg capsule 0.4 mg PO Q24H #14 caps 05/07/25 Allergies Allergy/AdvReac Type Severity Reaction Status Date / Time No Known Allergies Allergy Verified 03/21/25 11:10 [facility] <Addi Maldonado, DO - Last Filed: 05/07/25 01:14> [facility] Disclaimer: The information contained in this section may have been updated after the patient was seen, as this information can be updated by other users. Medical History Gastroenteritis Kidney stone Positive OSVALDO (antinuclear antibody) Scoliosis Surgical History History of appendectomy History of tonsillectomy and adenoidectomy Family History Father Cancer skin Diabetes Grandmother Cancer tongue Grandmother Diabetes Family/Other Cancer brain cancer Social History (Updated 03/21/25 @ 11:16 by Eneida Onofre CMA) Smoking Status: Never smoker alcohol intake: current alcohol intake frequency: holidays/special occasions only substance use type: denies use current occupational status: employed and other details: self employed Travel in the last 8 weeks?: Inside the [place] Have you lived/traveled outside US in past 30 days?: No Contact w/someone who lives/traveled outside US past 30 days?: No Exposure to someone with infectious disease in past 14 days?: No Do you have a fever (greater than 100.4 F or 38 C)?: No Have you tested positive for COVID-19?: No Exposed to someone with COVID-19 in past 14 days?: No Do you have a sore throat?: No Do you have a cough?: No Do you have any weakness?: No Do you have any diarrhea?: No Are you experiencing any unusual bleeding?: No Do you have any muscle aches/pain?: No Do you have any abdominal pain?: No Are you experiencing loss of taste or smell?: No <Addi Maldonado DO - Last Filed: 05/07/25 01:14> ROS Obtained: Yes Systems reviewed as appropriate & no additional complaints except as documented Physical Exam <Addi Maldonado DO - Last Filed: 05/07/25 01:14> General General appearance: other (See MDM) Respiratory Respiratory exam: Present other (See MDM) Cardiovascular Cardiovascular exam: Present other (See MDM) Neurological Exam Neurological exam: Present other (See MDM) Medical Decision Making <Addi Maldonado DO - Last Filed: 05/07/25 01:14> Medical Records Medical records reviewed: Yes I reviewed the patient's medical records. Screening: Per USPSTF and CDC recommendations, given the prevalence of disease in our region, it is our hospital?s policy to screen for HIV and viral Hepatitis for all patients aged 18 and over and those with ongoing risk factors. Hiram Inquiry Pt receiving controlled substance: No Hiram was queried for this patient: No Vital Signs: 05/06/25 22:00 Temperature 97.8 F Temperature Source Oral Pulse Rate [Left Radial] 60 Respiratory Rate 20 Blood Pressure [Left Arm] 140/77 Blood Pressure Mean [Left Arm] 98 Blood Pressure Source [Left Arm] Automatic Cuff Blood Pressure Position [Left Arm] Standing 02 Sat by Pulse Oximetry 100 Oxygen Delivery Method Room Air Lab Data Lab Results 05/06/25 22:20: Urine Color Yellow, Urine Appearance Clear, Urine pH 6.0, Ur Specific [place] >= 1.030, Urine Protein Negative, Urine Glucose (UA) Negative, Urine Ketones Negative, Urine Blood Negative, Urine Nitrate Negative, Urine Bilirubin Negative, Urine Urobilinogen 0.2, Ur Leukocyte Esterase Negative, Urine RBC None, Urine WBC Occasional, Ur Squamous Epith Cells None, Urine Bacteria Trace 05/06/25 23:10: WBC 8.8, RBC 4.92, Hgb 16.4, Hct 44.3, MCV 90.0, MCH 33.3 H, MCHC 37.0 H, RDW 12.8, Plt Count 190, MPV 11.5 H, Neut % (Auto) 73.1, Lymph % (Auto) 18.0, [place] % (Auto) 7.6, Eos % (Auto) 0.7, Baso % (Auto) 0.3, Neut # (Auto) 6.4, Lymph # (Auto) 1.6, [place]comb # (Auto) 0.7, Eos # (Auto) 0.1, Baso # (Auto) 0.0, Sodium 139, Potassium 3.9, Chloride 106, Carbon Dioxide 25, Anion Gap 11.9, BUN 12, Creatinine 0.80, Estimated Creat Clear 162, Estimated GFR 110, Est GFR ( Amer) 133, Glucose 167 H, Calcium 9.2, Total Bilirubin 1.8 H, AST 44, ALT 41, Alkaline Phosphatase 73, Total Protein 7.3, Albumin 4.5, Globulin 2.8, Albumin/Globulin Ratio 1.6, Lipase 102 05/06/25 23:10 05/06/25 23:10 Orders (Tests/Meds): ED MEDICATIONS Discontinued Medications Generic Name Dose Route Start Last Admin Trade Name Rileyq PRN Reason Stop Dose Admin Ketorolac Tromethamine 15 mg 05/07/25 01:12 Ketorolac 15mg/Ml Vial IV 05/07/25 01:13 ONCE ONE Morphine Sulfate 4 mg 05/06/25 23:15 05/06/25 23:19 Morphine 4mg/Ml Syringe IV 05/06/25 23:16 4 mg ONCE ONE Administration Ondansetron HCl 4 mg 05/06/25 23:15 05/06/25 23:19 Ondansetron 4mg/2ml Vial IV 05/06/25 23:16 4 mg ONCE ONE Administration Oxycodone HCl 7.5 mg 05/07/25 01:10 Oxycodone 5mg Immediate Release Tablet PO 05/07/25 01:11 ONCE ONE Tamsulosin HCl 0.4 mg 05/07/25 01:12 Tamsulosin 0.4mg Capsule PO 05/07/25 01:13 ONCE ONE ORDERS Category Date Time Status CT abdomen wo con Stat Cat Scan 05/06/25 23:18 Completed POCUS Point of Care (ER Only) Stat Exams 05/06/25 23:14 Completed CBC w/Auto Diff [Complete Blood Count Auto Diff] Stat Lab 05/06/25 23:10 Completed CMP [Comprehensive Metabolic Panel] Stat Lab 05/06/25 23:10 Completed Lipase Stat Lab 05/06/25 23:10 Completed Urinalysis and Microscopic Stat Lab 05/06/25 22:20 Completed Medical Decision Narrative: In summary, this is a 35-year-old male patient who is presenting to the emergency department today for evaluation of left flank pain rating to his left lower quadrant that feels similar to his prior kidney stones. Comorbidities include past medical history of kidney stones. On initial evaluation of the patient they were resting comfortably in no acute distress and nontoxic in appearance. They are hemodynamically stable, saturating well room air, and are neurologically intact. On physical examination of the patient he does appear to be experiencing acute pain. He has a left CVA tenderness to palpation. He does not have any tenderness in the abdomen at all. He is afebrile nontoxic-appearing. Heart lungs clear to auscultation bilaterally. Differential diagnosis includes ureterolithiasis, infected kidney stone, urinary tract infection, pyelonephritis, among others. Workup was initiated with hematologic labs as well as a bedside POCUS assessment. We have also treated the patient with 4 mg of morphine, 4 mg of Zofran. Bedside POCUS assessment did reveal that there was left-sided hydronephrosis. This does increase my pretest probability that there is a kidney stone present. Given that he is experiencing such significant pain I did decide to obtain a CT scan of the abdomen and pelvis without contrast. CT scan is significant for a left-sided ureterovesicular junction stone. Labs personally interpreted by me demonstrate no actionable abnormalities. There is no leukocytosis. No evidence of urinary tract infection. No evidence of acute kidney injury. Patient was still having pain on repeat reassessment. I offered transferring him out to a facility that has access to urology and is capable of removing stone. The patient does not want to pursue that at this time. Therefore we have come to a shared decision making agreement to give him another dose of oxycodone here with Toradol and tamsulosin and send oxycodone, Toradol, and tamsulosin to the pharmacy. My 2 factor authentication was malfunctioning. IT is not available this evening. The oncoming provider was available on shift at the time of discharge this patient and I asked them to write the narcotic prescription for the patient. They will write an addendum to clarify this further. Patient was discharged in stable condition. <Joel Diaz MD - Last Filed: 05/07/25 01:23> Vital Signs: 05/06/25 22:00 Temperature 97.8 F Temperature Source Oral Pulse Rate [Left Radial] 60 Respiratory Rate 20 Blood Pressure [Left Arm] 140/77 Blood Pressure Mean [Left Arm] 98 Blood Pressure Source [Left Arm] Automatic Cuff Blood Pressure Position [Left Arm] Standing 02 Sat by Pulse Oximetry 100 Oxygen Delivery Method Room Air Lab Data Lab Results 05/06/25 22:20: Urine Color Yellow, Urine Appearance Clear, Urine pH 6.0, Ur Specific [place] >= 1.030, Urine Protein Negative, Urine Glucose (UA) Negative, Urine Ketones Negative, Urine Blood Negative, Urine Nitrate Negative, Urine Bilirubin Negative, Urine Urobilinogen 0.2, Ur Leukocyte Esterase Negative, Urine RBC None, Urine WBC Occasional, Ur Squamous Epith Cells None, Urine Bacteria Trace 05/06/25 23:10: WBC 8.8, RBC 4.92, Hgb 16.4, Hct 44.3, MCV 90.0, MCH 33.3 H, MCHC 37.0 H, RDW 12.8, Plt Count 190, MPV 11.5 H, Neut % (Auto) 73.1, Lymph % (Auto) 18.0, [place] % (Auto) 7.6, Eos % (Auto) 0.7, Baso % (Auto) 0.3, Neut # (Auto) 6.4, Lymph # (Auto) 1.6, [place] # (Auto) 0.7, Eos # (Auto) 0.1, Baso # (Auto) 0.0, Sodium 139, Potassium 3.9, Chloride 106, Carbon Dioxide 25, Anion Gap 11.9, BUN 12, Creatinine 0.80, Estimated Creat Clear 162, Estimated GFR 110, Est GFR ( Amer) 133, Glucose 167 H, Calcium 9.2, Total Bilirubin 1.8 H, AST 44, ALT 41, Alkaline Phosphatase 73, Total Protein 7.3, Albumin 4.5, Globulin 2.8, Albumin/Globulin Ratio 1.6, Lipase 102 Orders (Tests/Meds): ED MEDICATIONS Discontinued Medications Generic Name Dose Route Start Last Admin Trade Name Freq PRN Reason Stop Dose Admin Ketorolac Tromethamine 15 mg 05/07/25 01:12 Ketorolac 15mg/Ml Vial IV 05/07/25 01:13 ONCE ONE Morphine Sulfate 4 mg 05/06/25 23:15 05/06/25 23:19 Morphine 4mg/Ml Syringe IV 05/06/25 23:16 4 mg ONCE ONE Administration Ondansetron HCl 4 mg 05/06/25 23:15 05/06/25 23:19 Ondansetron 4mg/2ml Vial IV 05/06/25 23:16 4 mg ONCE ONE Administration Oxycodone HCl 7.5 mg 05/07/25 01:10 Oxycodone 5mg Immediate Release Tablet PO 05/07/25 01:11 ONCE ONE Tamsulosin HCl 0.4 mg 05/07/25 01:12 Tamsulosin 0.4mg Capsule PO 05/07/25 01:13 ONCE ONE ORDERS Category Date Time Status CT abdomen wo con Stat Cat Scan 05/06/25 23:18 Completed POCUS Point of Care (ER Only) Stat Exams 05/06/25 23:14 Completed CBC w/Auto Diff [Complete Blood Count Auto Diff] Stat Lab 05/06/25 23:10 Completed CMP [Comprehensive Metabolic Panel] Stat Lab 05/06/25 23:10 Completed Lipase Stat Lab 05/06/25 23:10 Completed Urinalysis and Microscopic Stat Lab 05/06/25 22:20 Completed Medical Decision Narrative: In summary, this is a 35-year-old male patient who is presenting to the emergency department today for evaluation of left flank pain rating to his left lower quadrant that feels similar to his prior kidney stones. Comorbidities include past medical history of kidney stones. On initial evaluation of the patient they were resting comfortably in no acute distress and nontoxic in appearance. They are hemodynamically stable, saturating well room air, and are neurologically intact. On physical examination of the patient he does appear to be experiencing acute pain. He has a left CVA tenderness to palpation. He does not have any tenderness in the abdomen at all. He is afebrile nontoxic-appearing. Heart lungs clear to auscultation bilaterally. Differential diagnosis includes ureterolithiasis, infected kidney stone, urinary tract infection, pyelonephritis, among others. Workup was initiated with hematologic labs as well as a bedside POCUS assessment. We have also treated the patient with 4 mg of morphine, 4 mg of Zofran. Bedside POCUS assessment did reveal that there was left-sided hydronephrosis. This does increase my pretest probability that there is a kidney stone present. Given that he is experiencing such significant pain I did decide to obtain a CT scan of the abdomen and pelvis without contrast. CT scan is significant for a left-sided ureterovesicular junction stone. Labs personally interpreted by me demonstrate no actionable abnormalities. There is no leukocytosis. No evidence of urinary tract infection. No evidence of acute kidney injury. Patient was still having pain on repeat reassessment. I offered transferring him out to a facility that has access to urology and is capable of removing stone. The patient does not want to pursue that at this time. Therefore we have come to a shared decision making agreement to give him another dose of oxycodone here with Toradol and tamsulosin and send oxycodone, Toradol, and tamsulosin to the pharmacy. My 2 factor authentication was malfunctioning. IT is not available this evening. The oncoming provider was available on shift at the time of discharge this patient and I asked them to write the narcotic prescription for the patient. They will write an addendum to clarify this further. Patient was discharged in stable condition. Diaz: I agree with the assessment and plan from Dr. Maldonado above. I personally evaluated the patient and discussed results with him. He does think narcotic pain control at home would be helpful to get through the weekend with which I agree. I think this is very reasonable given his ureterolithiasis. I counseled and educated him on careful use of this medication due to its risk of dependence and side effects. Reviewed PDMP which does not show any previous controlled substance prescriptions. The prescription that was attempted to be sent by Dr. Maldonado was unsuccessful secondary to failure of his 2 factor authentication. I was able to prescribe hydrocodone/acetaminophen to this patient without issue to help with pain control over the weekend. I reviewed discharge instructions with him including symptomatic monitoring and management, follow-up, and return precautions for the ER. He indicated understanding and the patient was discharged in stable condition. Critical Care <Addi Maldonado, - Last Filed: 05/07/25 01:14> Critical Care Time Critical Care Time: No
[2025-05-07] MEDS: TAMSULOSIN 0.4MG CAPSULE 0.4 MG PO (01:24)
[2025-05-07] MEDS: OXYCODONE 5MG IMMEDIATE RELEASE TABLET 7.5 MG PO (01:25)
[2025-05-07] MEDS: KETOROLAC 15MG/ML VIAL 15 MG IV (01:25)
[2025-05-07 01:35] VITALS: BP 164/80; PULSE 72; RESP 14; TEMP 36.7; O2SAT 100
== END 2025-05-07 01:36 | disposition home or self-care (01) ==
PROVIDERS: Emergency Provider Student in an Organized Health Care Education/Training Program; PCP Nurse Practitioner Family
DX: N13.0 Hydronephrosis with ureteropelvic junction obstruction (principal); R10.32 Left lower quadrant pain; M54.59 Other low back pain
CPT/HCPCS: 74150; 80053; 81001; 83690; 85025; 96374; 96375; 99283; 99285; J1885; J2270; J2405